=== PATIENT | female | born 1960 | race Caucasian/White ===

== ENCOUNTER 2017-08-12 11:34 | Emergency (ER) | payer OTHER | END 2017-08-12 18:51 | disposition home or self-care (01) | LOC: E/R 11:34 | DX: M25.531 Pain in right wrist (principal) | CPT/HCPCS: 29125; 73110-RT; 99283-25 ==

== ENCOUNTER 2018-01-06 17:05 | Emergency (ER) | payer OTHER ==
[2018-01-06] MEDS: KETOROLAC 60 MG INJ IM (20:32)
== END 2018-01-06 23:03 | disposition home or self-care (01) ==
LOC: FTE 17:05
DX: S89.91XA Unspecified injury of right lower leg, initial encounter (principal); E03.9 Hypothyroidism, unspecified; X58.XXXA Exposure to other specified factors, initial encounter; Y92.9 Unspecified place or not applicable
CPT/HCPCS: 73562; 96372; 99284-25

== ENCOUNTER 2018-03-12 13:33 | Emergency (ER) | payer OTHER ==
[2018-03-12] MEDS: KETOROLAC 15 MG INJ IV (18:08)
[2018-03-12] MEDS: SOD CHLORIDE 0.9% 1,000 ML IV (18:08)
[2018-03-12 18:14] LABS: ADD UMIC YES; UR ASCORBIC ACID 40 mg/dL (NEGATIVE); UR BILIRUBIN (Dip) NEGATIVE (NEGATIVE); UR BLOOD (Dip) NEGATIVE (NEGATIVE); UR CLARITY SLIGHTLY CLOUDY (CLEAR); UR COLOR YELLOW (YELLOW); UR GLUCOSE (Dip) NEGATIVE (NEGATIVE); UR KETONES (Dip) TRACE mg/dL (NEGATIVE); UR LEUKOCYTE ESTERASE (Dip) 2+ Leu/ul (NEGATIVE); UR MUCUS FEW /HPF (NONE SEEN); UR NITRITE (Dip) NEGATIVE (NEGATIVE); UR RBC 3 /HPF (0-5); UR SPECIFIC GRAVITY (Dip) 1.026 (1.003-1.030); UR SQUAMOUS EPITHELIAL CELL FEW /HPF (FEW); UR TOTAL PROTEIN (Dip) NEGATIVE (NEGATIVE); UR UROBILINOGEN (Dip) NEGATIVE (NEGATIVE); UR WBC 15 /HPF (0-5)
[2018-03-12 18:26] LABS: ADD MAN DIFF? NO
[2018-03-12 18:31] LABS: BASOPHILS % 0.3 % (0.0-2.0); EOSINOPHILS # 0.2 10^3/ul (0.0-0.5); EOSINOPHILS % 2.2 % (0.0-7.0); HEMATOCRIT 46.7 % (37.0-47.0); HEMOGLOBIN 15.4 g/dl (12.0-16.0); LYMPHOCYTES # 1.7 10^3/ul (0.8-2.9); LYMPHOCYTES % 21.7 % (15.0-51.0); MEAN CORPUSCULAR HEMOGLOBIN 30.6 pg (29.0-33.0); MEAN CORPUSCULAR VOLUME 92.8 fl (82.0-101.0); MEAN PLATELET VOLUME 10.7 fl (7.4-10.4); MONOCYTE # 0.3 10^3/ul (0.3-0.9); MONOCYTES % 4.3 % (0.0-11.0); NEUTROPHIL # 5.4 10^3/ul (1.6-7.5); PLATELET COUNT 252 10^3/UL (140-415); RED BLOOD COUNT 5.03 10^6/ul (4.20-5.40); RED CELL DISTRIBUTION WIDTH 12.6 % (11.5-14.5)
[2018-03-12 18:31] LABS: WHITE BLOOD COUNT 7.6 10^3/ul (4.8-10.8)
[2018-03-12] MEDS: FAMOTIDINE 20 MG INJ IV (18:39)
[2018-03-12] MEDS: CEPHALEXIN 500 MG CAP PO (18:39)
[2018-03-12] MEDS: ONDANSETRON (ODT) 4 MG TAB ODT (18:39)
[2018-03-12 18:49] LABS: INR 0.94; PROTIME 12.7 Sec (11.9-14.9)
[2018-03-12 18:50] LABS: PARTIAL THROMBOPLASTIN TIME 34.9 Sec (23.0-35.0)
[2018-03-12 18:51] LABS: ALANINE AMINOTRANSFERASE 7 IU/L (13-69); ALBUMIN 4.5 g/dl (3.3-4.9); ALBUMIN/GLOBULIN RATIO 1.28; ALKALINE PHOSPHATASE 102 IU/L (42-121); ANION GAP 13 (5-13); ASPARTATE AMINO TRANSFERASE 24 IU/L (15-46); BILIRUBIN,INDIRECT 0.7 mg/dl (0-1.1); BILIRUBIN,TOTAL 0.7 mg/dl (0.2-1.3); BLOOD UREA NITROGEN 16 mg/dl (7-20); CALCIUM 8.9 mg/dl (8.4-10.2); CARBON DIOXIDE 27 mmol/L (21-31); CHLORIDE 104 mmol/L (97-110); CREATININE 0.52 mg/dl (0.44-1.00); Estimated GFR > 60 mL/min (>60); GLUCOSE 122 mg/dl (70-220); LIPASE 69 U/L (23-300); POTASSIUM 4.4 mmol/L (3.5-5.1); SODIUM 144 mmol/L (135-144)
[2018-03-12 19:01] LABS: TROPONIN-I < 0.012 ng/ml (0.000-0.120)
== END 2018-03-12 19:37 | disposition home or self-care (01) ==
LOC: FTE 13:33
DX: N39.0 Urinary tract infection, site not specified (principal); R19.7 Diarrhea, unspecified; M25.532 Pain in left wrist; E03.9 Hypothyroidism, unspecified; F17.210 Nicotine dependence, cigarettes, uncomplicated
CPT/HCPCS: 36415; 71045; 73110-RT; 74176; 80053; 81001; 83690; 84484; 85025; 85610; 85730; 96374; 96375; 99285-25

== ENCOUNTER 2018-12-25 09:41 | Day surgery (SDC) | payer OTHER ==
[2018-12-25] MEDS: CEFAZOLIN 2 GM/50 ML (PMX) 50 ML IVPB (06:00)
[2018-12-25] MEDS: LACTATED RINGER'S 1,000 ML IV (10:51)
[2018-12-25] MEDS: GABAPENTIN 300 MG CAP PO (10:51)
[2018-12-25] MEDS: DEXAMETHASONE 2 MG TAB PO (10:51)
[2018-12-25] MEDS ORDERED: LIDOCAINE 2% (SDV) 5 ML INJ (13:49)
[2018-12-25] MEDS ORDERED: PROPOFOL 20 ML (13:49)
[2018-12-25] MEDS ORDERED: MIDAZOLAM 1 MG/ML 2 ML INJ (13:50)
[2018-12-25] MEDS ORDERED: FENTAnyl 50 MCG/ML VIAL (13:50)
[2018-12-25] MEDS ORDERED: ROPIVACAINE 0.5 % 30 ML VIAL (13:50)
[2018-12-25] MEDS ORDERED: ONDANSETRON 4 MG INJ (14:11)
[2018-12-25] MEDS ORDERED: DEXAMETHASONE 4 MG/ML 5 ML INJ (14:11)
[2018-12-25] MEDS ORDERED: CEFAZOLIN 1 GM INJ (14:11)
[2018-12-25] MEDS ORDERED: EPINEPHrine 1 MG/ML 30 ML INJ (14:55)
[2018-12-25] MEDS ORDERED: EPHEDrine 25 MG/5 ML SYG (15:16)
[2018-12-25] MEDS ORDERED: PROCHLORPERAZINE 10 MG INJ IV (15:30)
[2018-12-25] MEDS ORDERED: DIPHENHYDRAMINE 50 MG INJ IV (15:30)
[2018-12-25] MEDS ORDERED: MEPERIDINE 25 MG INJ IV (15:30)
[2018-12-25] MEDS ORDERED: HYDROmorphONE 1 MG/5 ML IV SYRINGE IV (15:30)
[2018-12-25] MEDS ORDERED: FENTAnyl 50 MCG/ML VIAL IV (15:30)
[2018-12-25] MEDS ORDERED: EPHEDrine 25 MG/5 ML SYG IV (15:30)
[2018-12-25] MEDS: HYDROmorphONE 1 MG/5 ML IV SYRINGE IV ×2 (16:01→16:08)
[2018-12-25] MEDS: ONDANSETRON 4 MG INJ IV (16:01)
[2018-12-25] MEDS: OXYCODONE/ACETAMINOPHEN (5/325) TAB PO (16:11)
== END 2018-12-25 16:43 | disposition home or self-care (01) ==
LOC: SDS 09:41
DX: M75.101 Unspecified rotator cuff tear or rupture of right shoulder, not specified as traumatic (principal); M25.811 Other specified joint disorders, right shoulder; S43.491D Other sprain of right shoulder joint, subsequent encounter; S46.211D Strain of muscle, fascia and tendon of other parts of biceps, right arm, subsequent encounter; M13.811 Other specified arthritis, right shoulder; X58.XXXD Exposure to other specified factors, subsequent encounter; M65.811 Other synovitis and tenosynovitis, right shoulder; E03.9 Hypothyroidism, unspecified
CPT/HCPCS: 29824